=== PATIENT | female | born 1965 | race American Indian/Alaskan Native ===

== ENCOUNTER 2020-01-07 16:03 | Inpatient (IN) | payer OTHER ==
[2020-01-07] MEDS ORDERED: SODIUM CHLORIDE 0.9% 1000 ML 1,000 ML IV ONE (16:17)
--- NOTE | 2020-01-07 16:27 | Emergency Department Report ---
ED Altered Mental Status HPI - General Chief Complaint: Altered Mental Status Stated Complaint: ALTERED MENTAL STATUS PUI?: No Time Seen by Provider: 01/07/20 16:09 Source: patient, EMS Mode of arrival: Ambulatory Limitations: Altered Mental Status - History of Present Illness Initial Comments: CC: altered mental status HPI: Mrs. Watts is a 54 yo female with hypertension, back surgery 4 months ago, multiple abdominal surgeries at least 19 in total, who presents with altered mental status. Patient's cousin called EMS due to patient's lethargy and disorientation. According to EMS, patient was alert and oriented times 3. However, patient only "moans" in the affirmative or negative. She said "yes" when asked about hearing voices. She shakes her head when I ask if she is in pain. Otherwise patient will not cooperate with history. Bottles of amlodipine and baclofen were found in patient's bathroom. Patient's daughter and cousin gave information. Around 1 pm, patient was in the bathroom for 15 minutes. Cousin checked on her. She was lethargic and acting strangely. Cousin suspects that she may have taken too much medication. Patient would just moan. Patient vomited and laid in bed. Patient has hx of chronic pain and opioid dependence. Patient underwent outpatient rehabilitation for opioid dependence last year. Patient works at [employer] in [employer]. Complaint: altered mental status -: unknown Severity: moderate Consistency of Symptoms: waxing and waning Context: unknown - Related Data Home Medications Medication Instructions Recorded Confirmed Last Taken Baclofen [Lioresal] 10 mg PO TID PRN 01/07/20 01/07/20 Unknown Allergies Allergy/AdvReac Type Severity Reaction Status Date / Time No Known Allergies Allergy Unverified 01/07/20 16:53 ED Review of Systems ROS: Stated complaint: ALTERED MENTAL STATUS Other details as noted in HPI Comment: Unobtainable due to pts medical conditions (Limited due to altered mental status) ED Past Medical Hx - Past Medical History Additional medical history: Unable to obtain - Surgical History Additional Surgical History: Unable to obtain - Social History Substance Use Type: Other (Unable to obtain) - Medications Home Medications: Home Medications Medication Instructions Recorded Confirmed Last Taken Type Baclofen [Lioresal] 10 mg PO TID PRN 01/07/20 01/07/20 Unknown History ED Physical Exam - General Limitations: Altered Mental Status General appearance: alert, in no apparent distress, other (Patient moans shakes her head and attempt to answer questions. She does not move her mouth. She makes eye contact. She has purposeful movements.) - Head Head exam: Present: atraumatic, normocephalic - Eye Eye exam: Present: normal appearance - ENT ENT exam: Present: mucous membranes moist - Neck Neck exam: Present: normal inspection, full ROM - Respiratory Respiratory exam: Present: normal lung sounds bilaterally. Absent: respiratory distress, wheezes, rales, rhonchi - Cardiovascular Cardiovascular Exam: Present: regular rate, normal rhythm, normal heart sounds. Absent: systolic murmur, diastolic murmur, rubs, gallop - GI/Abdominal GI/Abdominal exam: Present: soft, normal bowel sounds. Absent: distended, tenderness, guarding, rebound - Extremities Exam Extremities exam: Present: normal inspection - Neurological Exam Neurological exam: Present: alert, altered - Psychiatric Psychiatric exam: Present: flat affect - Skin Skin exam: Present: warm, dry, intact, normal color. Absent: rash ED Course Vital Signs 01/07/20 01/07/20 01/07/20 16:34 16:37 16:45 Temperature 98.4 F Pulse Rate 81 78 82 Respiratory 15 11 L 10 L Rate Blood Pressure 156/92 Blood Pressure 144/87 [Left] O2 Sat by Pulse 98 98 Oximetry 01/07/20 01/07/20 01/07/20 17:00 17:16 17:30 Temperature Pulse Rate 83 83 82 Respiratory 11 L 7 L 9 L Rate Blood Pressure 156/92 156/92 Blood Pressure [Left] O2 Sat by Pulse 98 99 99 Oximetry 01/07/20 01/07/20 01/07/20 17:45 18:08 18:15 Temperature Pulse Rate 75 87 84 Respiratory 0 L 15 Rate Blood Pressure 141/83 141/83 146/84 Blood Pressure [Left] O2 Sat by Pulse 99 96 Oximetry 01/07/20 01/07/20 01/07/20 18:30 18:45 19:00 Temperature Pulse Rate 86 86 88 Respiratory 12 10 L 12 Rate Blood Pressure 146/84 129/77 136/71 Blood Pressure [Left] O2 Sat by Pulse 99 100 95 Oximetry 01/07/20 01/07/20 19:15 20:22 Temperature Pulse Rate 87 Respiratory 12 20 Rate Blood Pressure 134/74 Blood Pressure [Left] O2 Sat by Pulse 100 98 Oximetry - Reevaluation(s) Reevaluation #1: 01/07/20 19:38 I reevaluated patient after speak with family. Patient is ambulatory without difficulty. She went to the restroom on her own. She is speaking with nurse. Reevaluation #2: 01/07/20 19:59 I reevaluated patient. Patient is speaking fluently. She continues to repeat that "I was going to the bathroom. I do not know was going on. I do not know what happened." She is unable to give me a list of her medications. - Lab Data Result diagrams: 01/07/20 16:24 01/07/20 16:24 Lab Results 01/07/20 01/07/20 01/07/20 Range/Units 16:24 16:24 16:24 WBC 11.6 H (4.5-11.0) K/mm3 RBC 4.40 (3.65-5.03) M/mm3 Hgb 11.9 (10.1-14.3) gm/dl Hct 36.8 (30.3-42.9) % MCV 84 (79-97) fl MCH 27 L (28-32) pg MCHC 33 (30-34) % RDW 15.4 H (13.2-15.2) % Plt Count 194 (140-440) K/mm3 Lymph % (Auto) 10.4 L (13.4-35.0) % [place] % (Auto) 6.8 (0.0-7.3) % Eos % (Auto) 0.1 (0.0-4.3) % Baso % (Auto) 0.2 (0.0-1.8) % Lymph # (Auto) 1.2 (1.2-5.4) K/mm3 [place] # (Auto) 0.8 (0.0-0.8) K/mm3 Eos # (Auto) 0.0 (0.0-0.4) K/mm3 Baso # (Auto) 0.0 (0.0-0.1) K/mm3 Seg Neutrophils % 82.5 H (40.0-70.0) % Seg Neutrophils # 9.6 H (1.8-7.7) K/mm3 Sodium 143 (137-145) mmol/L Potassium 3.6 (3.6-5.0) mmol/L Chloride 103.5 (98-107) mmol/L Carbon Dioxide 28 (22-30) mmol/L Anion Gap 15 mmol/L BUN 16 (7-17) mg/dL Creatinine 0.9 (0.6-1.2) mg/dL Estimated GFR > 60 ml/min BUN/Creatinine Ratio 18 % Glucose 107 H (65-100) mg/dL Calcium 9.4 (8.4-10.2) mg/dL Total Bilirubin 0.40 (0.1-1.2) mg/dL AST 13 (5-40) units/L ALT 14 (7-56) units/L Alkaline Phosphatase 111 (35-129) units/L Ammonia 21.0 L (25-60) umol/L Total Protein 8.4 H (6.3-8.2) g/dL Albumin 4.4 (3.9-5) g/dL Albumin/Globulin Ratio 1.1 % TSH (0.270-4.200) mlU/mL Salicylates (2.8-20.0) mg/dL Acetaminophen (10.0-30.0) ug/mL Plasma/Serum Alcohol (0-0.07) % 01/07/20 01/07/20 01/07/20 Range/Units 16:24 16:24 16:24 WBC (4.5-11.0) K/mm3 RBC (3.65-5.03) M/mm3 Hgb (10.1-14.3) gm/dl Hct (30.3-42.9) % MCV (79-97) fl MCH (28-32) pg MCHC (30-34) % RDW (13.2-15.2) % Plt Count (140-440) K/mm3 Lymph % (Auto) (13.4-35.0) % [place] % (Auto) (0.0-7.3) % Eos % (Auto) (0.0-4.3) % Baso % (Auto) (0.0-1.8) % Lymph # (Auto) (1.2-5.4) K/mm3 [place] # (Auto) (0.0-0.8) K/mm3 Eos # (Auto) (0.0-0.4) K/mm3 Baso # (Auto) (0.0-0.1) K/mm3 Seg Neutrophils % (40.0-70.0) % Seg Neutrophils # (1.8-7.7) K/mm3 Sodium (137-145) mmol/L Potassium (3.6-5.0) mmol/L Chloride (98-107) mmol/L Carbon Dioxide (22-30) mmol/L Anion Gap mmol/L BUN (7-17) mg/dL Creatinine (0.6-1.2) mg/dL Estimated GFR ml/min BUN/Creatinine Ratio % Glucose (65-100) mg/dL Calcium (8.4-10.2) mg/dL Total Bilirubin (0.1-1.2) mg/dL AST (5-40) units/L ALT (7-56) units/L Alkaline Phosphatase (35-129) units/L Ammonia (25-60) umol/L Total Protein (6.3-8.2) g/dL Albumin (3.9-5) g/dL Albumin/Globulin Ratio % TSH 0.500 (0.270-4.200) mlU/mL Salicylates < 0.3 L (2.8-20.0) mg/dL Acetaminophen 5.0 L (10.0-30.0) ug/mL Plasma/Serum Alcohol (0-0.07) % 10// Range/Units 16:24 WBC (4.5-11.0) K/mm3 RBC (3.65-5.03) M/mm3 Hgb (10.1-14.3) gm/dl Hct (30.3-42.9) % MCV (79-97) fl MCH (28-32) pg MCHC (30-34) % RDW (13.2-15.2) % Plt Count (140-440) K/mm3 Lymph % (Auto) (13.4-35.0) % [place] % (Auto) (0.0-7.3) % Eos % (Auto) (0.0-4.3) % Baso % (Auto) (0.0-1.8) % Lymph # (Auto) (1.2-5.4) K/mm3 [place] # (Auto) (0.0-0.8) K/mm3 Eos # (Auto) (0.0-0.4) K/mm3 Baso # (Auto) (0.0-0.1) K/mm3 Seg Neutrophils % (40.0-70.0) % Seg Neutrophils # (1.8-7.7) K/mm3 Sodium (137-145) mmol/L Potassium (3.6-5.0) mmol/L Chloride (98-107) mmol/L Carbon Dioxide (22-30) mmol/L Anion Gap mmol/L BUN (7-17) mg/dL Creatinine (0.6-1.2) mg/dL Estimated GFR ml/min BUN/Creatinine Ratio % Glucose (65-100) mg/dL Calcium (8.4-10.2) mg/dL Total Bilirubin (0.1-1.2) mg/dL AST (5-40) units/L ALT (7-56) units/L Alkaline Phosphatase (35-129) units/L Ammonia (25-60) umol/L Total Protein (6.3-8.2) g/dL Albumin (3.9-5) g/dL Albumin/Globulin Ratio % TSH (0.270-4.200) mlU/mL Salicylates (2.8-20.0) mg/dL Acetaminophen (10.0-30.0) ug/mL Plasma/Serum Alcohol < 0.01 (0-0.07) % - Medical Decision Making This is a 54-year-old female with unknown past medical history who presents with altered mental status. Patient's mental status appears to be waxing and waning. She was conversant with EMS according to triage nurse report. At this point she only moans and nods her head. Differential diagnosis includes intentional overdose, recreational drug use, acute psychosis. I do not suspect acute CVA or head trauma. However CT of the head was obtained to rule out intracranial hemorrhage or mass considering limited history. Patient's mental status is waxing waning. Patient is now talking. However she has repetitive speech. She will not provide a urine sample. She will not provide a list of her medications. Mental health director instructional material did evaluate patient in the emergency department. She confirmed with family members that patient do es not have a previous diagnosis of mental illness with the exception of opioid dependence. Family members also noticed that patient had an odd episode 1 week ago whereas she stared off. She appeared dazed and unresponsive for several moments. Differential diagnosis include polypharmacy, recreational drug use, unintentional overdose. Patient is admitted to the hospitalist service. Critical Care Time: Yes Critical care time in (mins) excluding proc time.: 40 Critical care attestation.: If time is entered above; I have spent that time in minutes in the direct care of this critically ill patient, excluding procedure time. 40 minutes of critical care time excluding procedures were used in the care of the patient. I came immediately to the bedside upon patient's arrival. I discussed treatment plan with the nursing team members. I reviewed electronic record. Patient required multiple interventions and reassessments. ED Disposition Clinical Impression: Altered mental status Disposition: [id number] OP ADMIT IP TO THIS HOSP Is pt being admited?: Yes Does the pt Need Aspirin: No Condition: Stable
[2020-01-07 16:49] LABS: Basophils % (Auto) 0.2 % (0.0-1.8); Eosinophils % (Auto) 0.1 % (0.0-4.3); Hematocrit 36.8 % (30.3-42.9); Hemoglobin 11.9 gm/dl (10.1-14.3); Lymphocytes # (Auto) 1.2 K/mm3 (1.2-5.4); Lymphocytes % (Auto) 10.4 % (13.4-35.0); Mean Corpuscular HGB Conc 33 % (30-34); Mean Corpuscular Volume 84 fl (79-97); Monocytes # (Auto) 0.8 K/mm3 (0.0-0.8); Monocytes % (Auto) 6.8 % (0.0-7.3); Platelet Count 194 K/mm3 (140-440); Red Cell Distribution Width 15.4 % (13.2-15.2)
[2020-01-07 17:03] LABS: Alanine Aminotransferase 14 units/L (7-56); Albumin 4.4 g/dL (3.9-5); BUN/Creatinine Ratio 18; Blood Urea Nitrogen 16 mg/dL (7-17); Calcium 9.4 mg/dL (8.4-10.2); Hemolysis Index 11
--- NOTE | 2020-01-07 18:44 | Cat Scan Report ---
CT BRAIN: 01/07/2020 INDICATION / CLINICAL INFORMATION: Altered Mental Status. COMPARISON: None available. FINDINGS: BRAIN/INTRACRANIAL STRUCTURES: Unenhanced CT images of the brain demonstrate no evidence of acute int racranial abnormality. Ventricles and sulci are normal in size and shape. Some chronic white matter hypoattenuation is present distributed hemispheric white matter. There is no CT evidence of acute ischemic injury, hemorrhage, or mass. There are no abnormal extra-ax ial fluid collections. EXTRACRANIAL STRUCTURES: Unremarkable. IMPRESSION: No acute abnormality. All CT scans at this location are performed using dose reduction to ALARA by means of automated expos ure control. Signer Name: Griffin Torre MD Signed: 01/07/2020 6:39 PM Workstation Name: [id number]
[2020-01-07] MEDS ORDERED: MAGNESIUM HYDROXIDE (MOM) ORAL LIQD UDC PO PRN (23:00)
[2020-01-07] MEDS ORDERED: ONDANSETRON 4 MG/2 ML INJ IV PRN (23:00)
[2020-01-07] MEDS ORDERED: ACETAMINOPHEN 325 MG TAB PO PRN (23:00)
--- NOTE | 2020-01-07 23:08 | History and Physical Report ---
History of Present Illness Date of examination: 01/07/20 Date of admission: 01/07/2020 Chief complaint: Altered Mental Status History of present illness: Patient is a 54-year-old -[place] female with known history of hypertension history of back surgery and multiple abdominal surgeries in the past brought into the emergency room today for altered mental status. Family was said to have called EMS because patient had become lethargic and disoriented. Patient is known to be on multiple pain medication for chronic back pain. She was also said to have gone for outpatient rehabilitation for opiate dependence sometime last year. Family also indicates that patient stayed for an extensive period of time in the bathroom today and thereafter started having changes in mental status. Upon arrival in the emergency room patient was said to be altered and confused however upon my examination she was more alert and oriented and was able to answer questions appropriately. Patient cannot recall why and how she got so confused and disoriented. Patient denies any fever or chills, no chest pain or shortness of breath, no nausea or vomiting, no headache or dizziness, no hematuria or dysuria. Work-up in the emergency room including CT scan of the head and labs so far has been unremarkable. Patient was eventually able to give a urine sample- result which is still pending. Past History Past Medical History: hypertension, other (Chronic Back Pain) Past Surgical History: Other (Back Surgery, Abdominal Sugery) Social history: no significant social history Family history: no significant family history Medications and Allergies Allergies Allergy/AdvReac Type Severity Reaction Status Date / Time No Known Allergies Allergy Unverified 01/07/20 16:53 Home Medications Medication Instructions Recorded Confirmed Last Taken Type Baclofen [Lioresal] 10 mg PO TID PRN 01/07/20 01/07/20 Unknown History Amlodipine Besylate [Norvasc] 5 mg PO DAILY 01/08/20 01/08/20 Unknown History Gabapentin [Neurontin] 600 mg PO Q8H 01/08/20 01/08/20 Unknown History Zolpidem Tartrate [Ambien CR] 12.5 mg PO QHS 01/08/20 01/08/20 Unknown History Active Meds: Active Medications Acetaminophen (Tylenol) 650 mg PO Q4H PRN PRN Reason: Pain MILD(1-3)/Fever >100.5/GUARDADO Enoxaparin Sodium (Enoxaparin) 40 mg SUB-Q QDAY@2200 MAXX; Protocol Sodium Chloride (Nacl 0.9% 1000 Ml) 1,000 mls @ 75 mls/hr IV DIRECT MAXX Magnesium Hydroxide (Milk Of Magnesia) 30 ml PO Q4H PRN PRN Reason: Constipation Ondansetron HCl (Zofran) 4 mg IV Q8H PRN PRN Reason: Nausea And Vomiting Sodium Chloride (Sodium Chloride Flush Syringe 10 Ml) 10 ml IV BID MAXX Sodium Chloride (Sodium Chloride Flush Syringe 10 Ml) 10 ml IV PRN PRN PRN Reason: LINE FLUSH Review of Systems Constitutional: no fever, no chills Ears, nose, mouth and throat: no nasal congestion, no sore throat Cardiovascular: no chest pain, no palpitations Respiratory: no cough, no shortness of breath Gastrointestinal: no abdominal pain, no nausea, no vomiting, no diarrhea Genitourinary Female: no flank pain, no dysuria, no hematuria Musculoskeletal: no neck pain, no low back pain Integumentary: no rash, no pruritis Neurological: change in mentation, confusion, no syncope, no headaches Psychiatric: no anxiety, no depression Exam - Constitutional Vitals: Temp Pulse Resp BP Pulse Ox 98.4 F 87 20 134/74 98 01/07/20 16:37 01/07/20 19:15 01/07/20 20:22 01/07/20 19:15 01/07/20 20:22 General appearance: Present: no acute distress, well-nourished - EENT Eyes: Present: PERRL, EOM intact. Absent: scleral icterus ENT: hearing intact, clear oral mucosa, dentition normal - Neck Neck: Present: supple, normal ROM - Respiratory Respiratory effort: normal Respiratory: bilateral: CTA - Cardiovascular Rhythm: regular Heart Sounds: Present: S1 & S2. Absent: gallop, systolic murmur, diastolic murmur, rub - Extremities Extremities: no ischemia, pulses intact, pulses symmetrical, No edema, Full ROM Peripheral Pulses: within normal limits - Abdominal General gastrointestinal: Present: soft, non-tender, non-distended, normal bowel sounds - Integumentary Integumentary: Present: clear, warm, dry - Musculoskeletal Musculoskeletal: strength equal bilaterally - Psychiatric Psychiatric: appropriate mood/affect, intact judgment & insight, memory intact, cooperative - Neurologic Neurologic: CNII-XII intact, no focal deficits, moves all extremities Results - Labs CBC & Chem 7: 01/07/20 16:24 01/07/20 16:24 Labs: Abnormal lab results 01/07/20 01/07/20 01/07/20 Range/Units 16:24 16:24 16:24 WBC 11.6 H (4.5-11.0) K/mm3 MCH 27 L (28-32) pg RDW 15.4 H (13.2-15.2) % Lymph % (Auto) 10.4 L (13.4-35.0) % Seg Neutrophils % 82.5 H (40.0-70.0) % Seg Neutrophils # 9.6 H (1.8-7.7) K/mm3 Glucose 107 H (65-100) mg/dL Ammonia 21.0 L (25-60) umol/L Total Protein 8.4 H (6.3-8.2) g/dL Salicylates (2.8-20.0) mg/dL Acetaminophen (10.0-30.0) ug/mL 01/07/20 01/07/20 Range/Units 16:24 16:24 WBC (4.5-11.0) K/mm3 MCH (28-32) pg RDW (13.2-15.2) % Lymph % (Auto) (13.4-35.0) % Seg Neutrophils % (40.0-70.0) % Seg Neutrophils # (1.8-7.7) K/mm3 Glucose (65-100) mg/dL Ammonia (25-60) umol/L Total Protein (6.3-8.2) g/dL Salicylates < 0.3 L (2.8-20.0) mg/dL Acetaminophen 5.0 L (10.0-30.0) ug/mL Assessment and Plan - Patient Problems (1) Altered mental status Current Visit: Yes Status: Acute Plan to address problem: Etiology is unclear but probably secondary to unintentional drug overdose. Medications will be reviewed prior to discharge. We will monitor closely as patient has become more alert and oriented. (2) Hypertension Current Visit: Yes Status: Acute Plan to address problem: We will resume routine home medications and monitor vital signs closely. (3) DVT prophylaxis Current Visit: Yes Status: Acute Plan to address problem: Patient placed on subcutaneous Lovenox. (4) Full code status Current Visit: Yes Status: Acute
[2020-01-08] MEDS ORDERED: amLODIPine 5 MG TAB ONE (02:29)
[2020-01-08] MEDS: amLODIPine 5 MG TAB PO SCH ×2 (02:35→10:09)
[2020-01-08 03:10] LABS: Bacteria,Urine 1+ /HPF (Negative); Bilirubin,Urine NEG (Negative); Blood,Urine NEG (Negative); Color,Urine Yellow (Yellow); Mucus,Urine FEW /HPF; Urobilinogen,Urine < 2.0 mg/dL (<2.0)
[2020-01-08 03:14] LABS: Amphetamine Screen,Urine PRESUMPTIVE NEGATIVE; Benzodiazepines Screen,Urine PRESUMPTIVE NEGATIVE; Cannabinoid Screen,Urine PRESUMPTIVE NEGATIVE; Cocaine Screen,Urine PRESUMPTIVE NEGATIVE; Methadone Screen,Urine PRESUMPTIVE NEGATIVE; Opiate Screen,Urine PRESUMPTIVE NEGATIVE
[2020-01-08] MEDS: SODIUM CHLORIDE 0.9% 1000 ML 1,000 ML IV SCH ×2 (03:15→16:15)
[2020-01-08 05:52] LABS: Basophils # (Auto) 0.1 K/mm3 (0.0-0.1); Basophils % (Auto) 0.5 % (0.0-1.8); Eosinophils # (Auto) 0.1 K/mm3 (0.0-0.4); Eosinophils % (Auto) 0.5 % (0.0-4.3); Hematocrit 34.8 % (30.3-42.9); Hemoglobin 11.7 gm/dl (10.1-14.3); Lymphocytes # (Auto) 2.2 K/mm3 (1.2-5.4); Lymphocytes % (Auto) 19.3 % (13.4-35.0); Mean Corpuscular HGB Conc 34 % (30-34); Mean Corpuscular Volume 82 fl (79-97); Monocytes # (Auto) 1.1 K/mm3 (0.0-0.8); Monocytes % (Auto) 9.5 % (0.0-7.3); Platelet Count 192 K/mm3 (140-440); Red Blood Count 4.24 M/mm3 (3.65-5.03); Red Cell Distribution Width 15.4 % (13.2-15.2)
[2020-01-08 06:04] LABS: INR 0.92 (0.87-1.13)
[2020-01-08 06:14] LABS: Blood Urea Nitrogen 13 mg/dL (7-17); Calcium 9.2 mg/dL (8.4-10.2); Hemolysis Index 4
[2020-01-08 06:15] LABS: BUN/Creatinine Ratio 19
[2020-01-08] MEDS ORDERED: BACLOFEN 10 MG TAB PO PRN (09:24)
--- NOTE | 2020-01-08 11:34 | Progress Note ---
<TRISTAN MAI - Last Filed: 01/08/20 13:25> Assessment and Plan - Patient Problems (1) Altered mental status Current Visit: Yes Status: Acute Plan to address problem: Etiology is unclear but probably secondary to unintentional drug overdose. Medications will be reviewed prior to discharge. CT of the head negative for acute finding urine toxicology -negative for illicit drugs (2) Hypertension Current Visit: Yes Status: Acute Plan to address problem: Monitor blood pressure resume home medication (3) DVT prophylaxis Current Visit: Yes Status: Acute Plan to address problem: Patient placed on subcutaneous Lovenox. - Patient Problems (1) Bipolar 1 disorder with moderate abbey Current Visit: Yes Status: Acute Plan to address problem: Psych consult-f/u with recommendation Start Depakote (2) UTI (urinary tract infection) Current Visit: Yes Status: Acute Plan to address problem: UA positive for WBC and urine bacteria Start empiric abx Urine culture (3) Leucocytosis Current Visit: Yes Status: Acute Plan to address problem: leukocytosis Mild-11.2 ? cause likely 2/2 to UTI patient came with Altered mental status-CT of the head negative for acute finding Started on empric abx Monitor WBC Subjective Date of service: 01/08/20 Principal diagnosis: AMS Interval history: Patient seen at bedside-Psych present. She denies any mental issues and have never been to a psych. She reports long hx of opiate dependency and have been to [facility]. She reports family problem and daughter Reviewed lab, mar, and v/s. reviewed psych note and reces-start depakene Objective - Constitutional Vitals: Vital Signs - 12hr 01/07/20 01/07/20 01/08/20 23:34 23:47 00:00 Temperature Pulse Rate Respiratory Rate Blood Pressure 134/74 134/74 134/74 Blood Pressure [Left] O2 Sat by Pulse 80 L 89 Oximetry 01/08/20 01/08/20 01/08/20 00:28 00:31 00:47 Temperature Pulse Rate Respiratory Rate Blood Pressure 134/74 134/74 134/74 Blood Pressure [Left] O2 Sat by Pulse 86 94 92 Oximetry 01/08/20 01/08/20 01/08/20 01:00 01:16 01:33 Temperature Pulse Rate Respiratory Rate Blood Pressure 134/74 124/75 124/75 Blood Pressure [Left] O2 Sat by Pulse 85 75 L Oximetry 01/08/20 01/08/20 01/08/20 01:55 02:00 02:10 Temperature 98.2 F Pulse Rate 97 H Respiratory 18 Rate Blood Pressure 158/101 124/75 198/101 Blood Pressure [Left] O2 Sat by Pulse 99 86 87 Oximetry 01/08/20 01/08/20 01/08/20 02:20 02:31 02:35 Temperature Pulse Rate 102 H Respiratory Rate Blood Pressure 198/101 198/101 168/101 Blood Pressure [Left] O2 Sat by Pulse 85 Oximetry 01/08/20 01/08/20 01/08/20 02:41 02:51 03:00 Temperature Pulse Rate Respiratory Rate Blood Pressure 198/101 198/101 198/101 Blood Pressure [Left] O2 Sat by Pulse 85 85 94 Oximetry 01/08/20 01/08/20 01/08/20 03:10 03:19 03:21 Temperature Pulse Rate 88 Respiratory Rate Blood Pressure 198/101 198/101 Blood Pressure [Left] O2 Sat by Pulse 83 L 99 98 Oximetry 01/08/20 01/08/20 01/08/20 03:28 03:33 03:43 Temperature 97.7 F Pulse Rate 85 Respiratory 18 Rate Blood Pressure 198/101 198/101 Blood Pressure 167/94 [Left] O2 Sat by Pulse 91 Oximetry 01/08/20 01/08/20 01/08/20 03:50 04:01 04:10 Temperature Pulse Rate Respiratory Rate Blood Pressure 198/101 198/101 198/101 Blood Pressure [Left] O2 Sat by Pulse 97 Oximetry 01/08/20 01/08/20 01/08/20 04:20 04:21 04:34 Temperature Pulse Rate Respiratory 17 Rate Blood Pressure 198/101 198/101 Blood Pressure [Left] O2 Sat by Pulse Oximetry 01/08/20 01/08/20 01/08/20 05:42 10:09 11:01 Temperature 97.9 F 97.3 F L Pulse Rate 87 74 85 Respiratory 18 18 Rate Blood Pressure 128/78 128/78 158/88 Blood Pressure [Left] O2 Sat by Pulse 99 98 Oximetry General appearance: Present: no acute distress, well-nourished - EENT Eyes: PERRL, EOM intact ENT: hearing intact, clear oral mucosa Ears: bilateral: normal - Neck Neck: supple, normal ROM - Respiratory Respiratory effort: normal Respiratory: bilateral: CTA - Breasts Breasts: normal - Cardiovascular Rhythm: regular Heart Sounds: Present: S1 & S2. Absent: gallop, rub Extremities: pulses intact, No edema, normal color, Full ROM - Gastrointestinal General gastrointestinal: Present: soft, non-tender, non-distended, normal bowel sounds - Genitourinary Female genitourinary: normal - Integumentary Integumentary: clear, warm, dry - Musculoskeletal Musculoskeletal: 1, strength equal bilaterally - Neurologic Neurologic: moves all extremities - Psychiatric Psychiatric: agitated, depressed, other (anxiety and irritable) - Allied health notes Allied health notes reviewed: nursing - Labs CBC & Chem 7: 01/08/20 05:02 01/08/20 05:02 Labs: Abnormal lab results 01/07/20 01/07/20 01/07/20 Range/Units 16:24 16:24 16:24 WBC 11.6 H (4.5-11.0) K/mm3 MCH 27 L (28-32) pg RDW 15.4 H (13.2-15.2) % Lymph % (Auto) 10.4 L (13.4-35.0) % Hancock % (Auto) (0.0-7.3) % Hancock # (Auto) (0.0-0.8) K/mm3 Seg Neutrophils % 82.5 H (40.0-70.0) % Seg Neutrophils # 9.6 H (1.8-7.7) K/mm3 Glucose 107 H (65-100) mg/dL Ammonia 21.0 L (25-60) umol/L Total Protein 8.4 H (6.3-8.2) g/dL Urine WBC (Auto) (0.0-6.0) /HPF Salicylates (2.8-20.0) mg/dL Acetaminophen (10.0-30.0) ug/mL 01/07/20 01/07/20 01/08/20 Range/Units 16:24 16:24 02:26 WBC (4.5-11.0) K/mm3 MCH (28-32) pg RDW (13.2-15.2) % Lymph % (Auto) (13.4-35.0) % Hancock % (Auto) (0.0-7.3) % Hancock # (Auto) (0.0-0.8) K/mm3 Seg Neutrophils % (40.0-70.0) % Seg Neutrophils # (1.8-7.7) K/mm3 Glucose (65-100) mg/dL Ammonia (25-60) umol/L Total Protein (6.3-8.2) g/dL Urine WBC (Auto) 8.0 H (0.0-6.0) /HPF Salicylates < 0.3 L (2.8-20.0) mg/dL Acetaminophen 5.0 L (10.0-30.0) ug/mL 01/08/20 01/08/20 Range/Units 05:02 05:02 WBC 11.2 H (4.5-11.0) K/mm3 MCH (28-32) pg RDW 15.4 H (13.2-15.2) % Lymph % (Auto) (13.4-35.0) % Hancock % (Auto) 9.5 H (0.0-7.3) % Hancock # (Auto) 1.1 H (0.0-0.8) K/mm3 Seg Neutrophils % 70.2 H (40.0-70.0) % Seg Neutrophils # 7.9 H (1.8-7.7) K/mm3 Glucose 117 H (65-100) mg/dL Ammonia (25-60) umol/L Total Protein (6.3-8.2) g/dL Urine WBC (Auto) (0.0-6.0) /HPF Salicylates (2.8-20.0) mg/dL Acetaminophen (10.0-30.0) ug/mL <YEFRI PRABHAKAR R - Last Filed: 01/08/20 14:17> Assessment and Plan I saw and evaluated the patient. I agree with the findings and the plan of care as documented in the Nurse Practitioner's~note, with the following corrections and additions. Paych note reviewed, need inpt psych. change status to inpt and cont to monitor the patient Objective - Constitutional Vitals: Vital Signs - 12hr 01/08/20 01/08/20 01/08/20 02:20 02:31 02:35 Temperature Pulse Rate 102 H Respiratory Rate Blood Pressure 198/101 198/101 168/101 Blood Pressure [Left] O2 Sat by Pulse 85 Oximetry 01/08/20 01/08/20 01/08/20 02:41 02:51 03:00 Temperature Pulse Rate Respiratory Rate Blood Pressure 198/101 198/101 198/101 Blood Pressure [Left] O2 Sat by Pulse 85 85 94 Oximetry 01/08/20 01/08/20 01/08/20 03:10 03:19 03:21 Temperature Pulse Rate 88 Respiratory Rate Blood Pressure 198/101 198/101 Blood Pressure [Left] O2 Sat by Pulse 83 L 99 98 Oximetry 01/08/20 01/08/20 01/08/20 03:28 03:33 03:43 Temperature 97.7 F Pulse Rate 85 Respiratory 18 Rate Blood Pressure 198/101 198/101 Blood Pressure 167/94 [Left] O2 Sat by Pulse 91 Oximetry 01/08/20 01/08/20 01/08/20 03:50 04:01 04:10 Temperature Pulse Rate Respiratory Rate Blood Pressure 198/101 198/101 198/101 Blood Pressure [Left] O2 Sat by Pulse 97 Oximetry 01/08/20 01/08/20 01/08/20 04:20 04:21 04:34 Temperature Pulse Rate Respiratory 17 Rate Blood Pressure 198/101 198/101 Blood Pressure [Left] O2 Sat by Pulse Oximetry 01/08/20 01/08/20 01/08/20 05:42 10:09 11:01 Temperature 97.9 F 97.3 F L Pulse Rate 87 74 85 Respiratory 18 18 Rate Blood Pressure 128/78 128/78 158/88 Blood Pressure [Left] O2 Sat by Pulse 99 98 Oximetry - Labs CBC & Chem 7: 01/08/20 05:02 01/08/20 05:02 Labs: Abnormal lab results 01/07/20 01/07/20 01/07/20 Range/Units 16:24 16:24 16:24 WBC 11.6 H (4.5-11.0) K/mm3 MCH 27 L (28-32) pg RDW 15.4 H (13.2-15.2) % Lymph % (Auto) 10.4 L (13.4-35.0) % Hancock % (Auto) (0.0-7.3) % Hancock # (Auto) (0.0-0.8) K/mm3 Seg Neutrophils % 82.5 H (40.0-70.0) % Seg Neutrophils # 9.6 H (1.8-7.7) K/mm3 Glucose 107 H (65-100) mg/dL Ammonia 21.0 L (25-60) umol/L Total Protein 8.4 H (6.3-8.2) g/dL Urine WBC (Auto) (0.0-6.0) /HPF Salicylates (2.8-20.0) mg/dL Acetaminophen (10.0-30.0) ug/mL 01/07/20 01/07/20 01/08/20 Range/Units 16:24 16:24 02:26 WBC (4.5-11.0) K/mm3 MCH (28-32) pg RDW (13.2-15.2) % Lymph % (Auto) (13.4-35.0) % Hancock % (Auto) (0.0-7.3) % Hancock # (Auto) (0.0-0.8) K/mm3 Seg Neutrophils % (40.0-70.0) % Seg Neutrophils # (1.8-7.7) K/mm3 Glucose (65-100) mg/dL Ammonia (25-60) umol/L Total Protein (6.3-8.2) g/dL Urine WBC (Auto) 8.0 H (0.0-6.0) /HPF Salicylates < 0.3 L (2.8-20.0) mg/dL Acetaminophen 5.0 L (10.0-30.0) ug/mL 01/08/20 01/08/20 Range/Units 05:02 05:02 WBC 11.2 H (4.5-11.0) K/mm3 MCH (28-32) pg RDW 15.4 H (13.2-15.2) % Lymph % (Auto) (13.4-35.0) % Hancock % (Auto) 9.5 H (0.0-7.3) % Hancock # (Auto) 1.1 H (0.0-0.8) K/mm3 Seg Neutrophils % 70.2 H (40.0-70.0) % Seg Neutrophils # 7.9 H (1.8-7.7) K/mm3 Glucose 117 H (65-100) mg/dL Ammonia (25-60) umol/L Total Protein (6.3-8.2) g/dL Urine WBC (Auto) (0.0-6.0) /HPF Salicylates (2.8-20.0) mg/dL Acetaminophen (10.0-30.0) ug/mL
--- NOTE | 2020-01-08 11:36 | Consultation ---
History of Present Illness - Reason for Consult Consult date: 01/08/20 Reason for consult: MHE Requesting physician: NILES DAVILA - Chief Complaint Chief complaint: Altered Mental Status - History of Present Psychiatric Illness HPI: Mrs. Watts is a 54 yo female with hypertension, back surgery 4 months ago, multiple abdominal surgeries at least 19 in total, who presents with alter ed mental status. Patient's cousin called EMS due to patient's lethargy and disorientation. According to EMS, patient was alert and oriented times 3. However, patient only "moans" in the affirmative or negative. She said "yes" when asked about hearing voices. She shakes her head when I ask if she is in pain. Otherwise patient will not cooperate with history. Bottles of amlodipine and baclofen were found in patient's bathroom. Patient's daughter and cousin gave information. Around 1 pm, patient was in the bathroom for 15 minutes. Cousin checked on her. She was lethargic and acting strangely. Cousin suspects that she may have taken too much medication. Patient would just moan. Patient vomited and laid in bed. Patient has hx of chronic pain and opioid dependence. Patient underwent outpatient rehabilitation for opioid dependence last year. PER [facility]: Pt is a 54 year old AA female; Per triage note, "Per EMS pt has been lethargic and altered since yesterday per her cousin." Pt reports that she carries no mental health diagnosis and has no current mental health providers. Pt reports that she has never been seen by a mental health therapist. Pt states, "No, No No." Then pt reports, "I see a marriage counselor Yes Yes Yes for configuration." Unable to obtain consistent reliable information from the patient. The pt's family reports that the pt has never received any type of mental health services. Pt is oriented to self only. Pt is very confused and disoriented. The daughter explained that the family noticed that the pt "was looking at us like she is all confused." "Last week she had something like that when she kept telling me I don't know. I don't know." Family reports that the pt has never had any such incident occur. Pt has poor attention, poor memory, poor concentration. Pt repeats what I say or will continuously say, "no, no, no" or "yes, yes, yes." Pt denies any thoughts or plans to harm others. Pt denies any thoughts or plans of harming herself. Pt reports that she does not remember taking any pills. Pt shakes head, "no, no, no." and gazes back and forth rapidly with her eyes. When asked what pills she took, pt states, "I took a therapist." Pt appears very confused and disoriented. The pt's daughter reports that the pt has never attempted to harm herself in the past. Pt's daughter reports that her mother does not take any substances that are not prescribed to her. "She takes a lot of medications; I'm not sure what they are though." Per dr note; pt has a hx of opiod use and treatment. Pt lives with family and works at [employer] per family. 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 She goes to work, has a good job.. she has never been confused like this." The pt was previously living with her daughter for almost a year, and the pt was supposed to be moving into her new apartment today. 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 Patient says she does not need a psychiatric because her altered mental status has been cleared and came back around 2 AM today so she feels the way she normally used to. Patient reported that she had a night and encounter with her daughter because her daughter had recently had a surgery, where she took some fat from tummy and put in the buttocks area, says she was not happy about her daughter's actions that she confronted her daughter and also found out that daughter was high on benzodiazepines. Patient states about 2 days ago she had irritable bowel syndrome and also diverticulitis, which has gone away, patient also reports poor sleep W take 12.5 of Ambien every night to sleep. Patient states she is currently planning to move to home place within the next day or 2 that she was only staying at her daughter's place for week while at brand-new places ready. She reported driving Thursday night without sleeping because she wanted to forklift picker 1 of her cousins that could help her with moving. Patient was circumstantial in her responses, appears irritable, poor sleep pattern noted, flight of ideas, poor insight and very impulsive. PAST PSYCHIATRIC HISTORY Diagnoses: None reported Suicide attempts or Self-harm behavior: None reported Prior psychiatric hospitalizations: None reported Substance Abuse history: Prescription pain medicine Previous psychiatric medications tried: None reported Outpatient treatment: None reported PAST MEDICAL HISTORY: Hypertension and low back pain Family Psychiatric History: None reported or documented SOCIAL HISTORY Marital Status: Living Arrangements: Currently lives with daughter Employment Status: Claims she is employed Access to guns/weapons: None reported Education: High school History of Abuse: None reported Legal History: None reported REVIEW OF SYSTEMS Constitutional: Negative for weight loss ENT: Negative for stridor Respiratory: Negative for cough or hemoptysis All other systems reviewed and are negative MENTAL STATUS EXAMINATION General Appearance and Behavior: Age appropriate,good hygiene, wearing appropriate clothes, lying in bed, good eye contact, cooperative polite with questioning. Cooperation: Participating/engaged Psychomotor Behavior: unremarkable and within normal limits Mood: Good, Affect and affective range: , euthymic, irritable Thought Process: Circumstantial, Illogical, and Loose associations Thought Content:Obsessions, Flight of ideas, Illogical, Speech: pressured, loud volume, confused and blocking Intellectual Functioning: Average Suicidal Ideation: Denies SI Homicidal Ideation: Denies HI Impulse Control: Impaired Insight and Judgment: , Limited insight and judgment Memory:Short term memory impaired Attention: Divided attention impaired Orientation: Alert, oriented Assessment and Plan - Psychiatric problem (1) Bipolar 1 disorder with moderate abbey Current Visit: Yes Status: Acute Treatment Plan Geodon IM BID with valproate 250 mg MEDICATIONS: Risks, benefits and alternatives of medications discussed with the patient, questions answered and consent obtained from patient. PSYCHOTHERAPY: Supportive psychotherapy provided MEDICAL: Per primary team DELIRIUM PRECAUTIONS: Please re-orient patient frequently, keep lights on during the day, and minimize benzodiazepines and opiates as these medications could worsen patient's confusion. TOOL STRAIGHTENER: DISPOSITION: Do Recommend acute inpatient psychiatric hospitalization at this time LEGAL STATUS: 1013 FOLLOW-UP: Will follow Thank you for the consult. Please contact with any questions and/or concerns. Medications and Allergies Allergies Allergy/AdvReac Type Severity Reaction Status Date / Time No Known Allergies Allergy Unverified 01/07/20 16:53 Home Medications Medication Instructions Recorded Confirmed Last Taken Type Baclofen [Lioresal] 10 mg PO TID PRN 01/07/20 01/07/20 Unknown History Amlodipine Besylate [Norvasc] 5 mg PO DAILY 01/08/20 01/08/20 Unknown History Gabapentin [Neurontin] 600 mg PO Q8H 01/08/20 01/08/20 Unknown History Zolpidem Tartrate [Ambien CR] 12.5 mg PO QHS 01/08/20 01/08/20 Unknown History Active Meds: Active Medications Acetaminophen (Tylenol) 650 mg PO Q4H PRN PRN Reason: Pain MILD(1-3)/Fever >100.5/GUARDADO Amlodipine Besylate (Amlodipine) 5 mg PO QDAY [facility] Last Admin: 01/08/20 10:09 Dose: 5 mg Documented by: Baclofen (Lioresal) 10 mg PO TID PRN PRN Reason: Muscle Spasm Last Admin: 01/08/20 10:09 Dose: 10 mg Documented by: Enoxaparin Sodium (Enoxaparin) 40 mg SUB-Q QDAY@2200 MAXX; Protocol Sodium Chloride (Nacl 0.9% 1000 Ml) 1,000 mls @ 75 mls/hr IV DIRECT MAXX Last Admin: 01/08/20 03:15 Dose: 75 mls/hr Documented by: Magnesium Hydroxide (Milk Of Magnesia) 30 ml PO Q4H PRN PRN Reason: Constipation Ondansetron HCl (Zofran) 4 mg IV Q8H PRN PRN Reason: Nausea And Vomiting Sodium Chloride (Sodium Chloride Flush Syringe 10 Ml) 10 ml IV BID [facility] Last Admin: 01/08/20 10:13 Dose: 10 ml Documented by: Sodium Chloride (Sodium Chloride Flush Syringe 10 Ml) 10 ml IV PRN PRN PRN Reason: LINE FLUSH Mental Status Exam - Vital signs Last Vital Signs Temp 97.3 F L 01/08/20 11:01 Pulse 85 01/08/20 11:01 Resp 18 01/08/20 11:01 BP 158/88 01/08/20 11:01 Pulse Ox 98 01/08/20 11:01 Results Result Diagrams: 01/08/20 05:02 01/08/20 05:02 Abnormal lab results 01/07/20 01/07/20 01/07/20 Range/Units 16:24 16:24 16:24 WBC 11.6 H (4.5-11.0) K/mm3 MCH 27 L (28-32) pg RDW 15.4 H (13.2-15.2) % Lymph % (Auto) 10.4 L (13.4-35.0) % Nobles % (Auto) (0.0-7.3) % Nobles # (Auto) (0.0-0.8) K/mm3 Seg Neutrophils % 82.5 H (40.0-70.0) % Seg Neutrophils # 9.6 H (1.8-7.7) K/mm3 Glucose 107 H (65-100) mg/dL Ammonia 21.0 L (25-60) umol/L Total Protein 8.4 H (6.3-8.2) g/dL Urine WBC (Auto) (0.0-6.0) /HPF Salicylates (2.8-20.0) mg/dL Acetaminophen (10.0-30.0) ug/mL 01/07/20 01/07/20 01/08/20 Range/Units 16:24 16:24 02:26 WBC (4.5-11.0) K/mm3 MCH (28-32) pg RDW (13.2-15.2) % Lymph % (Auto) (13.4-35.0) % Nobles % (Auto) (0.0-7.3) % Nobles # (Auto) (0.0-0.8) K/mm3 Seg Neutrophils % (40.0-70.0) % Seg Neutrophils # (1.8-7.7) K/mm3 Glucose (65-100) mg/dL Ammonia (25-60) umol/L Total Protein (6.3-8.2) g/dL Urine WBC (Auto) 8.0 H (0.0-6.0) /HPF Salicylates < 0.3 L (2.8-20.0) mg/dL Acetaminophen 5.0 L (10.0-30.0) ug/mL 01/08/20 01/08/20 Range/Units 05:02 05:02 WBC 11.2 H (4.5-11.0) K/mm3 MCH (28-32) pg RDW 15.4 H (13.2-15.2) % Lymph % (Auto) (13.4-35.0) % Nobles % (Auto) 9.5 H (0.0-7.3) % Nobles # (Auto) 1.1 H (0.0-0.8) K/mm3 Seg Neutrophils % 70.2 H (40.0-70.0) % Seg Neutrophils # 7.9 H (1.8-7.7) K/mm3 Glucose 117 H (65-100) mg/dL Ammonia (25-60) umol/L Total Protein (6.3-8.2) g/dL Urine WBC (Auto) (0.0-6.0) /HPF Salicylates (2.8-20.0) mg/dL Acetaminophen (10.0-30.0) ug/mL All other labs normal. Assessment and Plan - Psychiatric problem (1) Bipolar 1 disorder with moderate abbey Current Visit: Yes Status: Acute
[2020-01-08] MEDS ORDERED: PETROLATUM,WHITE 30 GM OINT TP PRN (14:00)
[2020-01-08] MEDS ORDERED: WATER FOR INJ Sterile (PF) 10 ML ONE (14:21)
[2020-01-08] MEDS: VALPROIC ACID 250 MG CAP PO SCH ×2 (14:30→22:02)
[2020-01-08] MEDS: ZIPRASIDONE MESYLATE 20 MG VIAL IM SCH ×2 (14:31→22:02)
[2020-01-08] MEDS: cefTRIAXone/NS 1 GM/50 ML 1 GM/50 ML BAG IV SCH (14:35)
[2020-01-08] MEDS ORDERED: ZOLPIDEM 5 MG TAB PO PRN (21:07)
[2020-01-08] MEDS: GABAPENTIN 300 MG CAP PO SCH (21:49)
[2020-01-08] MEDS ORDERED: ENOXAPARIN 40 MG/0.4 ML INJ SUB-Q SCH (22:00)
[2020-01-09 06:44] VITALS: BP 134/84
--- NOTE | 2020-01-09 07:47 | Progress Note ---
Subjective - Reason for Consult Consult date: 01/09/20 Reason for consult: MHE Requesting physician: SONIA LOPEZ - Chief Complaint Chief complaint: Per Floor Nurse: Recieved pt alert and oriented times three. selfcare. pt was very angry saying that she only eats turkey and she haven't eat anything yet. Day shift nurse said nurse production machine shop supervisor and dietery people knows about this. But no food was here yet. RN continue to monitor. pt is in room air. pt is also 1013. Psych Progress Patient seen today, asked patient why she refused her psych medications, she says she is not bipolar and her altered mental status has resolved, she admits to her having been found with altered mental status but rememebers event leading to that moment and her arrival to the ER patient also reports she has been in conversation with her daughter, and it has been good, as a matter of fact she spoek with her daughter up to 6 times. I spoke with patient daughter who agrees with patients current thought process, she says over the phone, her mother sounds thesame, she does not suspect any worsening behavioral concerns and is agreeable to dishcagre. REVIEW OF SYSTEMS Constitutional: Negative for weight loss ENT: Negative for stridor Respiratory: Negative for cough or hemoptysis All other systems reviewed and are negative MENTAL STATUS EXAMINATION General Appearance and Behavior: Age appropriate,good hygiene, wearing appropriate clothes, lying in bed, good eye contact, cooperative polite with questioning. Cooperation: Participating/engaged Psychomotor Behavior: unremarkable and within normal limits Mood: Good, Affect and affective range: congruent with mood Thought Process: Logical Thought Content:logical Speech: pressured, loud volume, confused and blocking Intellectual Functioning: Average Suicidal Ideation: Denies SI Homicidal Ideation: Denies HI Impulse Control: Impaired Insight and Judgment: , Limited insight and judgment Memory:Short term memory impaired Attention: Divided attention impaired Orientation: Alert, oriented Assessment and Plan - Psychiatric problem (1) Bipolar 1 disorder with moderate abbey Current Visit: Yes Status: Acute MEDICATIONS: Risks, benefits and alternatives of medications discussed with the patient, questions answered and consent obtained from patient. PSYCHOTHERAPY: Supportive psychotherapy provided MEDICAL: Per primary team DELIRIUM PRECAUTIONS: Please re-orient patient frequently, keep lights on during the day, and minimize benzodiazepines and opiates as these medications could worsen patient's confusion. COREMAKER PIPE: DISPOSITION: Do not Recommend acute inpatient psychiatric hospitalization at th is time LEGAL STATUS: 1013 rescinded FOLLOW-UP: Will follow Thank you for the consult. Please contact with any questions and/or concerns. Mental Status Exam - Vital signs Last Vital Signs Temp 98.6 F 01/09/20 06:41 Pulse 89 01/09/20 06:41 Resp 16 01/09/20 06:41 BP 134/84 01/09/20 06:41 Pulse Ox 98 01/09/20 06:41 Assessment and Plan - Patient Problems (1) Bipolar 1 disorder with moderate abbey Current Visit: Yes Status: Acute
[2020-01-09] MEDS: GABAPENTIN 300 MG CAP PO SCH ×2 (08:51→13:37)
[2020-01-09] MEDS: VALPROIC ACID 250 MG CAP PO SCH ×3 (08:53→15:24)
[2020-01-09] MEDS: ZIPRASIDONE MESYLATE 20 MG VIAL IM SCH (09:30)
[2020-01-09] MEDS: amLODIPine 5 MG TAB PO SCH (09:30)
[2020-01-09] MEDS: SODIUM CHLORIDE 0.9% 1000 ML 1,000 ML IV SCH (12:35)
[2020-01-09] MEDS: cefTRIAXone/NS 1 GM/50 ML 1 GM/50 ML BAG IV SCH (13:37)
--- NOTE | 2020-01-09 14:18 | Discharge Summary ---
Providers - Providers Date of Admission: 01/08/20 12:28 Attending physician: YEFRI PRABHAKAR 01/07/20 16:18 Consult to Mental Health [CONS] Stat Reason For Exam: altered mental status, hallucinations Primary care physician: [employer]NAGER Hospitalization Condition: Stable Hospital course: Patient is a 54-year-old -[place] female with hypertension, recent back surgery, chronic back pain and multiple abdominal surgeries in the past who was brought into the emergency room on 01/07 for altered mental status after her family called EMS because the patient was lethargic and disoriented. Family was said to have called EMS because patient had become lethargic and disoriented. Patient has chronic back pain for which she takes multiple pain medications and reports outpatient rehab patient for opiate dependence sometime last year. Upon arrival to the emergency department the patient was altered and confused per ED notes. Work-up in the emergency department included a CT scan of her head and labs which were unremarkable. She also had pyuria on her urinalysis and was started on empiric antibiotics. Patient's 1013 hold has been rescinded today and she will be discharged home. She will be discharged home with a 1 day course of antibiotics for urinary tract infection. She wanted to follow-up with her primary care physician within 1 to 2 weeks of discharge and will need to seek outpatient psychiatric care. - Patient Problems (1) Encephalopathy Current Visit: Yes Status: Resolved Plan to address problem: Etiology is unclear but probably secondary to unintentional drug overdose (patient stated she was in pain and took extra pain medication) CT of the head negative for acute finding Urine toxicology -negative for illicit drugs (2) Bipolar 1 disorder with moderate abbey Current Visit: Yes Status: Acute Plan to address problem: Psych consulted the patient recommendations, 01/08 1013 rescinded Continue antipsychotic regimen Follow-up with outpatient psych care (3) UTI (urinary tract infection) Current Visit: Yes Status: Acute Plan to address problem: UA positive for WBC and urine bacteria Start empiric abx (01/07) Will be discharged with 1 day of Cipro to complete a 3-day course of antibiotics (4) Leucocytosis Current Visit: Yes Status: Acute Plan to address problem: Leukocytosis (WBC 11.6) cause likely 2/2 to UTI, discharge WBC 11.2 Patient came with Altered mental status-CT of the head negative for acute finding Patient was started on empiric antibiotics and will be discharge with 1 day of p.o. antibiotics (5) Hypertension Current Visit: Yes Status: Chronic Plan to address problem: Resume home antihypertensive regimen Blood pressure monitor per primary care physician Disposition: DC- TO HOME OR SELFCARE Time spent for discharge: 35 Core Measure Documentation - Palliative Care Palliative Care/ Comfort Measures: Not Applicable - Core Measures Any of the following diagnoses?: none Exam - Constitutional Vitals: Temp Pulse Resp BP Pulse Ox 98.6 F 89 16 134/84 98 01/09/20 06:41 01/09/20 06:41 01/09/20 06:41 01/09/20 06:41 01/09/20 06:41 General appearance: Present: no acute distress - EENT Eyes: Present: EOM intact ENT: hearing intact, clear oral mucosa - Neck Neck: Present: supple, normal ROM - Respiratory Respiratory effort: normal Respiratory: bilateral: CTA - Cardiovascular Rhythm: regular Heart Sounds: Present: S1 & S2. Absent: systolic murmur, diastolic murmur - Extremities Extremities: no ischemia, pulses intact, pulses symmetrical, No edema, normal temperature, normal color, Full ROM Peripheral Pulses: within normal limits - Abdominal General gastrointestinal: Present: soft, non-tender, non-distended, normal bowel sounds - Integumentary Integumentary: Present: clear, warm, dry - Musculoskeletal Musculoskeletal: strength equal bilaterally - Psychiatric Psychiatric: appropriate mood/affect, cooperative - Neurologic Neurologic: CNII-XII intact, no focal deficits, moves all extremities Plan Activity: advance as tolerated Diet: low salt Special Instructions: record daily BP diary Additional Instructions: Present to nearest emergency department or contact your primary care physician if you experience worsening symptoms. Follow-up with your primary care physician within 1 to 2 weeks of discharge. It is recommended that you seek outpatient psychiatric care. Follow up with: PRIMARY CARE, [Primary Care Provider] - 7 Days [facility] [Outside] - 7 Days Prescriptions: Zolpidem [Ambien] 5 mg PO QHS PRN #3 tablet PRN Reason: Sleep amLODIPine 5 mg PO QDAY #30 tablet
== END 2020-01-09 15:25 | disposition home or self-care (01) | DRG 918 ==
LOC: ED 16:03 → 3A 23:00 → OBSVTOIN 01-08 12:28
PROVIDERS: ADMIT Internal Medicine Geriatric Medicine; ATTEND Internal Medicine
DX: T40.2X1A Poisoning by other opioids, accidental (unintentional), initial encounter (principal); N39.0 Urinary tract infection, site not specified; G93.40 Encephalopathy, unspecified; F31.12 Bipolar disorder, current episode manic without psychotic features, moderate; I10 Essential (primary) hypertension; E78.5 Hyperlipidemia, unspecified; G89.29 Other chronic pain; Y92.89 Other specified places as the place of occurrence of the external cause
CPT/HCPCS: 36415; 70450; 80048; 80053; 80307; 80320; 81001; 82140; 84443; 85025; 85610; 87086; 87641; G0378; A6250; G0480; J0696; J1650; J3486; J7030